=== PATIENT | male | born 1990 | race Caucasian/White ===

== ENCOUNTER 2018-12-28 09:54 | Emergency (ER) | payer OTHER ==
[~2018-12-28] VITALS: Ht 170.2 cm; Wt 68.0 kg
[~2018-12-28 09:54] MED LIST: VIC
[2018-12-28 10:05] VITALS: BP 113/68
--- NOTE | 2018-12-28 10:15 | NUR ---
PT AMB TO BED 10
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
--- NOTE | 2018-12-28 10:24 | NUR ---
instructional technology coordinator at bedside.
[2018-12-28 11:10] VITALS: BP 113/68
--- NOTE | 2018-12-28 11:10 | NUR ---
Patient discharged BY DR JAY with v/s stable. Written and verbal after care instructions given and explained. Patient alert, oriented and verbalized understanding of instructions. Ambulatory with steady gait. All questions addressed prior to discharge. ID band removed. Patient advised to follow up with PMD. Rx of NAPROSYN given. Patient educated on indication of medication including possible reaction and side effects. Opportunity to ask questions provided and answered.
== END 2018-12-28 11:10 | disposition home or self-care (01) ==
LOC: MED 09:54
DX: S63.92XA Sprain of unspecified part of left wrist and hand, initial encounter (principal); Z79.891 Long term (current) use of opiate analgesic; Y04.0XXA Assault by unarmed brawl or fight, initial encounter; Y93.89 Activity, other specified; Y92.89 Other specified places as the place of occurrence of the external cause; Y99.8 Other external cause status
CPT/HCPCS: 73130; 99283

== ENCOUNTER 2019-01-21 16:49 | Emergency (ER) | payer OTHER ==
[~2019-01-21] VITALS: Ht 170.2 cm; Wt 66.7 kg
[2019-01-21 16:51] VITALS: BP 116/67
--- NOTE | 2019-01-21 16:56 | NUR ---
Gadiel serrano in [facility] - 01/21/19 at 1657 by NAZIA PT AMBULATED TO BED 12
--- NOTE | 2019-01-21 16:56 | NUR ---
PT AMBULATED TO ER BED 12
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
[2019-01-21] MEDS ORDERED: BUPIVACAINE-MPF 0.5% 30 ML VIAL INJ ONE (17:05)
--- NOTE | 2019-01-21 17:06 | NUR ---
X-RAY AT THE BEDSIDE.
[2019-01-21] MEDS ORDERED: LIDOCAINE MPF 1% 5mL VIAL INJ SCH (17:12)
[2019-01-21] MEDS ORDERED: LIDOCAINE MPF 1% - 5 mL VIAL 10 ML ONE (17:24)
[2019-01-21] MEDS ORDERED: MORPHINE SULFATE 4 MG/ML SYR IM STA (17:42)
--- NOTE | 2019-01-21 17:45 | NUR ---
PROCEDURE DONE BY DR PARADA, NAIL REMOVAL FROM LEFT HAND, 2ND DIGIT WITHOUT PROBLEMS. PT TOLERATED WELL.
[2019-01-21] MEDS: LIDOCAINE 1% 500 MG/50 ML VIAL INJ SCH (17:50)
[2019-01-21] MEDS ORDERED: MORPHINE SULFATE 4 MG/ML SYR ONE (17:53)
[2019-01-21 18:45] VITALS: BP 125/68
--- NOTE | 2019-01-21 18:45 | NUR ---
Patient discharged with v/s stable. Written and verbal after care instructions given and explained. Patient alert, oriented and verbalized understanding of instructions. Ambulatory with steady gait. All questions addressed prior to discharge. ID band removed. Patient advised to follow up with PMD. Rx of AUGMENTIN, IBUPROFEN given. Patient educated on indication of medication including possible reaction and side effects. Opportunity to ask questions provided and answered.
== END 2019-01-21 18:45 | disposition home or self-care (01) ==
LOC: MED 16:49
DX: S61.231A Puncture wound without foreign body of left index finger without damage to nail, initial encounter (principal); Z79.891 Long term (current) use of opiate analgesic; W29.4XXA Contact with nail gun, initial encounter; Y93.89 Activity, other specified; Y92.89 Other specified places as the place of occurrence of the external cause; Y99.8 Other external cause status
CPT/HCPCS: 73140; 90471; 90715; 96372; 99284; J2001; J2270; J3490; Q0092

== ENCOUNTER 2019-03-04 12:27 | Emergency (ER) | payer OTHER ==
[~2019-03-04] VITALS: Ht 172.7 cm; Wt 68.0 kg
[2019-03-04 12:30] VITALS: BP 130/75
--- NOTE | 2019-03-04 12:34 | NUR ---
PT AMB TO BED 7 WITH STEADY GAIT
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
--- NOTE | 2019-03-04 12:46 | NUR ---
LACERATION TRAY SET AT BEDSIDE. PT GIVEN EXTRA GAUZE AND INSTRUCTED TO APPLY PRESSURE. SITE CLEANED WITH STERILE WATER
--- NOTE | 2019-03-04 13:29 | NUR ---
DR BARKER AT BEDSIDE FOR PT. EVALUATION.
[2019-03-04] MEDS ORDERED: BACITRACIN OINT 500 UNITS/GM PKT TP ONE (13:30)
[2019-03-04] MEDS ORDERED: LIDOCAINE 1% ***ER ONLY *** 10 MG/ML VIAL INJ ONE (13:30)
[2019-03-04] MEDS ORDERED: LIDOCAINE MPF 1% - 5 mL VIAL 5 ML ONE ×2 (13:47→14:21)
--- NOTE | 2019-03-04 14:13 | NUR ---
DR BARKER AT BEDSIDE FOR SUTURE PROCEDURE. LIDOCAINE MEDICATION GIVEN TO DR BARKER
[2019-03-04 14:28] VITALS: BP 103/61
== END 2019-03-04 14:28 | disposition home or self-care (01) ==
LOC: MED 12:27
DX: S61.212A Laceration without foreign body of right middle finger without damage to nail, initial encounter (principal); F12.10 Cannabis abuse, uncomplicated; Z79.899 Other long term (current) drug therapy; W27.0XXA Contact with workbench tool, initial encounter; Y93.89 Activity, other specified; Y92.89 Other specified places as the place of occurrence of the external cause; Y99.8 Other external cause status
CPT/HCPCS: 12001; 99283; J2001

== ENCOUNTER 2019-03-12 12:57 | Emergency (ER) | payer OTHER ==
[~2019-03-12] VITALS: Ht 170.2 cm; Wt 67.6 kg
[2019-03-12 13:07] VITALS: BP 124/67
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
[2019-03-12 14:59] VITALS: BP 120/76
== END 2019-03-12 14:58 | disposition home or self-care (01) ==
LOC: MED 12:57
DX: S61.212D Laceration without foreign body of right middle finger without damage to nail, subsequent encounter (principal); L03.011 Cellulitis of right finger; Z79.899 Other long term (current) drug therapy; X58.XXXD Exposure to other specified factors, subsequent encounter
CPT/HCPCS: 73130; 99283; Q0092

== ENCOUNTER 2019-07-01 15:31 | Emergency (ER) | payer OTHER ==
[~2019-07-01] VITALS: Ht 170.2 cm; Wt 68.0 kg
[2019-07-01 15:38] VITALS: BP 101/65
--- NOTE | 2019-07-01 15:52 | NUR ---
DR. JAY EVALUATING PT AT BEDSIDE.
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
--- NOTE | 2019-07-01 17:05 | NUR ---
Patient discharged with v/s stable. Written and verbal after care instructions given and explained BY DR JAY AND PT D/C BY DR. JAY. Patient verbalized understanding. Ambulatory with steady gait. TO BE DRIVEN HOME BY GIRLFRIEND. All questions addressed prior to discharge. Advised to follow up with PMD.
[2019-07-01 17:38] VITALS: BP 115/72
== END 2019-07-01 17:09 | disposition home or self-care (01) ==
LOC: MED 15:31
DX: F12.929 Cannabis use, unspecified with intoxication, unspecified (principal); Z88.0 Allergy status to penicillin; Z79.899 Other long term (current) drug therapy; Z88.5 Allergy status to narcotic agent
CPT/HCPCS: 99281

== ENCOUNTER 2019-07-06 19:11 | Emergency (ER) | payer OTHER ==
[~2019-07-06] VITALS: Ht 170.2 cm; Wt 68.0 kg
[2019-07-06 19:30] VITALS: BP 117/74
--- NOTE | 2019-07-06 19:32 | NUR ---
TO LOBBY A/W BED AMBULATORY
--- NOTE | 2019-07-06 20:35 | NUR ---
Gadiel serrano in ED - 07/06/19 at 2220 by MEHNAZ PATIENT SITTING UP IN BED. HOOKED UP TO MONITOR. BED IN LOW LOCKED POSITION.
--- NOTE | 2019-07-06 20:35 | NUR ---
PATIENT ON MONITOR SEMI HARE IN BED WITH SIDE RAILS X 1 UP. NO NEEDS STATED AT THIS TIME. DENIES PAIN AT THIS TIME. VSS WILL MONITOR.
--- NOTE | 2019-07-06 20:40 | NUR ---
DR ZARATE AT BEDSIDE.
[2019-07-06 20:55] LABS: BASOPHILS % (AUTO) 0.8 % (0.0-2.0); EOSINOPHILS # (AUTO) 0.1 K/uL (0-0.4); EOSINOPHILS % (AUTO) 1.5 % (0.0-4.0); HEMATOCRIT 49.4 % (36-52); HEMOGLOBIN 16.4 g/dL (12.0-18.0); LYMPHOCYTES # (AUTO) 2.6 K/uL (2.0-11.5); LYMPHOCYTES % (AUTO) 47.1 % (20.5-51.1); MEAN CORPUSCULAR HEMOGLOBIN 31 pg (27-31); MEAN CORPUSCULAR HGB CONC 33 g/dL (33-37); MEAN CORPUSCULAR VOLUME 94.1 fL (80-94); MONOCYTES # (AUTO) 0.4 K/uL (0.8-1.0); NEUTROPHILS # (AUTO) 2.3 K/uL (1.8-7.7); NEUTROPHILS % (AUTO) 42.6 % (42.2-75.2); PLATELET COUNT (AUTO) 273 K/uL (140-450); RED BLOOD CELL COUNT(AUTO) 5.25 MIL/uL (4.20-6.10); RED CELL DISTRIBUTION WIDTH 12.8 % (11.6-13.7); WHITE BLOOD COUNT (AUTO) 5.5 K/uL (4.8-10.8)
[2019-07-06] MEDS ORDERED: COLCHICINE 0.6 MG TAB PO ONE (20:55)
[2019-07-06] MEDS ORDERED: IBUPROFEN 600 MG TAB PO ONE (20:55)
[2019-07-06 21:42] LABS: ANION GAP 14.3 (8-16); CARBON DIOXIDE 28.8 mmol/L (21-32); CREATININE 0.9 mg/dL (0.7-1.3); POTASSIUM 4.1 mmol/L (3.5-5.1)
--- NOTE | 2019-07-06 21:45 | NUR ---
PATIENT SITTING UP IN BED. NO NEEDS STATED. STATES IMPROVEMENT IN PAIN.
[2019-07-06 21:47] LABS: ALBUMIN 4.2 g/dL (3.4-5.0); TOTAL BILIRUBIN 0.4 mg/dL (0.0-1.0)
[2019-07-06 22:18] VITALS: BP 103/64
--- NOTE | 2019-07-06 22:19 | NUR ---
Patient discharged with v/s stable. Written and verbal after care instructions given and explained. Patient alert, oriented and verbalized understanding of instructions. Ambulatory with steady gait. All questions addressed prior to discharge. ID band removed. Patient advised to follow up with PMD. Rx of COLCHICINE AND IBURPROFEN given. Patient educated on indication of medication including possible reaction and side effects. Opportunity to ask questions provided and answered.
== END 2019-07-06 22:18 | disposition home or self-care (01) ==
LOC: MED 19:11
DX: I31.9 Disease of pericardium, unspecified (principal); F14.90 Cocaine use, unspecified, uncomplicated; F12.90 Cannabis use, unspecified, uncomplicated; Z88.0 Allergy status to penicillin; Z79.899 Other long term (current) drug therapy
CPT/HCPCS: 36415; 71046; 80053; 84484; 85025; 93005; 99284